=== PATIENT | female | born 1945 | race Hispanic/Latino ===

== ENCOUNTER 2022-11-26 03:47 | Observation (INO) | payer OTHER, MEDICARE ==
[~2022-11-26] VITALS: Ht 160 cm; Wt 61.7 kg
[2022-11-26 04:19] LABS: BASOPHILS % (AUTO) 0.4 % (0.0-5.0); EOSINOPHILS % (AUTO) 3.2 % (0.0-8.0); HEMATOCRIT 43.8 % (36-48); LYMPHOCYTES % (AUTO) 18.4 % (21.0-51.0); MEAN CORPUSCULAR HEMOGLOBIN 31.3 pg (27.0-33.0); MEAN CORPUSCULAR HGB CONC 33.1 g/dL (32.0-36.0); MEAN CORPUSCULAR VOLUME 94.4 fL (79-99); MONOCYTES % (AUTO) 9.6 % (3.0-13.0); NEUTROPHILS % (AUTO) 67.6 % (40.0-77.0); PLATELET COUNT (AUTO) 280 K/uL (130-400); RED BLOOD CELL COUNT(AUTO) 4.64 MIL/uL (4.00-5.50); RED CELL DISTRIBUTION WIDTH 13.6 % (11.0-15.5); WHITE BLOOD COUNT (AUTO) 9.8 K/uL (4.8-10.8)
[2022-11-26 04:20] LABS: APPEARANCE,URINE CLEAR (CLEAR); BILIRUBIN,URINE NEGATIVE (NEGATIVE); COLOR,URINE YELLOW (YELLOW); GLUCOSE, URINE (UA) NEGATIVE (NEGATIVE); KETONES,URINE NEGATIVE (NEGATIVE); LEUKOCYTE ESTERASE ,URINE NEGATIVE Leu/uL (NEGATIVE); NITRATE,URINE NEGATIVE (NEGATIVE); OCCULT BLOOD,URINE NEGATIVE (NEGATIVE); PH,URINE 5.5 (5.0-8.0); PROTEIN,URINE NEGATIVE (NEGATIVE); UROBILINOGEN,URINE 0.2 mg/dL (0.2-1.0)
[2022-11-26 04:38] LABS: CREATININE 0.8 mg/dL (0.5-1.5); POTASSIUM 3.5 mmol/L (3.5-5.1)
[2022-11-26 04:42] LABS: ALBUMIN 3.6 g/dL (3.5-5.0); TOTAL PROTEIN, SERUM 7.2 g/dL (6.0-8.3)
[2022-11-26] MEDS ORDERED: 0.9%NACL 1000ML 1,000 ML IV ONE (05:00)
[2022-11-26] MEDS ORDERED: ONDANSETRON 4MG INJ ONE (05:38)
[2022-11-26] MEDS ORDERED: KETOROLAC 15MG/ML VIAL (15MG/ML) IV ONE (06:00)
[2022-11-26] MEDS ORDERED: ONDANSETRON 4MG INJ IVP ONE (06:00)
[2022-11-26] MEDS ORDERED: ONDANSETRON 4MG INJ IVP PRN (07:00)
[2022-11-26] MEDS ORDERED: ARTIFICAL TEARS SOL 15 ML OP PRN (07:00)
[2022-11-26] MEDS: FAMOTIDINE 20MG VIAL IV SCH ×2 (07:50→19:59)
[2022-11-26] MEDS ORDERED: 0.9%NACL 1000ML 1,000 ML IV SCH (11:30)
[2022-11-26] MEDS ORDERED: HYDRALAZINE 20MG/ML VIAL IV PRN (11:30)
[2022-11-26 12:00] VITALS: BP 133/75
[2022-11-26 16:00] VITALS: BP 115/71
[2022-11-26] MEDS ORDERED: LOSA25TA41 PO (16:20)
[2022-11-26 19:00] VITALS: BP 135/69
[2022-11-27] VITALS: BP 120/65
[2022-11-27 04:00] VITALS: BP 121/66
[2022-11-27 04:34] LABS: MEAN CORPUSCULAR HEMOGLOBIN 31.4 pg (27.0-33.0); MEAN CORPUSCULAR HGB CONC 32.4 g/dL (32.0-36.0); MEAN CORPUSCULAR VOLUME 96.9 fL (79-99); RED BLOOD CELL COUNT(AUTO) 3.92 MIL/uL (4.00-5.50); RED CELL DISTRIBUTION WIDTH 13.7 % (11.0-15.5); WHITE BLOOD COUNT (AUTO) 7.3 K/uL (4.8-10.8)
[2022-11-27 04:53] LABS: HEMOGLOBIN A1C 6.1 % (4.0-6.0)
[2022-11-27 05:06] LABS: CREATININE 0.8 mg/dL (0.5-1.5); MAGNESIUM 1.9 mg/dL (1.80-2.40); PHOSPHORUS 3.5 mg/dL (2.5-4.9); POTASSIUM 3.7 mmol/L (3.5-5.1)
[2022-11-27] MEDS ORDERED: CEFTRIAXONE 500MG VIAL ONE (06:14)
[2022-11-27] MEDS ORDERED: CETIRIZINE HCL 5 MG TABLET PO ONE (06:17)
[2022-11-27 07:30] VITALS: BP 121/68
[2022-11-27] MEDS: FAMOTIDINE 20MG VIAL IV SCH (08:25)
[2022-11-27] MEDS ORDERED: ENOXAPARIN SODIUM 40 MG/0.4 ML SYRINGE SQ SCH (09:00)
[2022-11-27 11:30] VITALS: BP 136/78
[2022-11-27 15:30] VITALS: BP 149/88
== END 2022-11-27 16:43 | disposition home or self-care (01) ==
LOC: EDH 03:47 → EDHIP 06:50 → 4BH 11:12
PROVIDERS: ADMIT Internal Medicine; ATTEND Internal Medicine
DX: K56.7 Ileus, unspecified (principal); Z20.822 Contact with and (suspected) exposure to COVID-19; K52.9 Noninfective gastroenteritis and colitis, unspecified; K56.609 Unspecified intestinal obstruction, unspecified as to partial versus complete obstruction; E87.1 Hypo-osmolality and hyponatremia; I10 Essential (primary) hypertension; E11.9 Type 2 diabetes mellitus without complications; Z90.710 Acquired absence of both cervix and uterus; Z79.899 Other long term (current) drug therapy
CPT/HCPCS: 96374; 96376 ×2; 96361; 96375; 99285; 84484; 80053; 83690; 85025; 87804 ×2; 83605; 81003; 36415 ×2; 87635; 74018; 74176; 93005; 96372; 83036; 83735; 84100; 80048; 85027; G0378 ×34; C9803; J3490 ×3; J7030; J2405; J1885; J1650; J0696